=== PATIENT | female | born 1990 | race Caucasian/White ===

== ENCOUNTER 2019-10-11 12:00 | Outpatient (CLI) | payer OTHER | END 2019-10-11 12:01 | disposition home or self-care (01) | LOC: COV 12:00 | PROVIDERS: ATTEND Family Medicine | DX: R50.9 Fever, unspecified (principal); R53.83 Other fatigue; R09.81 Nasal congestion; Z20.828 Contact with and (suspected) exposure to other viral communicable diseases ==

== ENCOUNTER 2019-10-16 10:58 | Emergency (ER) | payer OTHER ==
[2019-10-16] MEDS ORDERED: KETOROLAC 30 MG/ML VIAL IVP STA (11:37)
--- NOTE | 2019-10-16 11:45 | ED Physician Documentation ---
History of Present Illness - Stated complaint Stated Complaint: NECK INJ - Chief complaint Chief Complaint: Trauma Hd/Nk - History obtained from History obtained from: Patient - History of Present Illness Timing: Today Pain level max: 8 Pain level now: 7 - Additonal information Additional information: Patient was at work today when she became stuck in a metal tank. She had flexion of her neck and back. She states she heard a crunching and has had increased pain since that time. No numbness or tingling. Has not taken anything for the pain. Is having pain in her thoracic spine, cervical spine and the back of her head. Denies any possibility of . Worse with movement, better with rest. Placed in a cervical collar at work. She works at [employer]. Review of Systems Ten Systems: 10 systems reviewed and negative Constitutional: denies: Fever, Chills Respiratory: denies: Cough GI: denies: Abdominal Pain, Nausea, Vomiting, Diarrhea : denies: Dysuria Skin: denies: Rash Musculoskeletal: reports: Neck pain, Back pain Neurologic: denies: Focal weakness, Numbness, Confused PD PAST MEDICAL HISTORY - Past Medical History Past Medical History: Yes Respiratory: Asthma - Past Surgical History Past Surgical History: No - Present Medications Home Medications: Ambulatory Orders Medication Instructions Recorded Confirmed Albuterol Sulfate [Albuterol 2 puffs IH Q4HR PRN #1 hfa.aer.ad 05/17/14 Sulfate Hfa] Albuterol [Ventolin Hfa] 2 puffs PO Q4H PRN 05/17/14 05/17/14 predniSONE [Deltasone] 40 mg PO DAILY 3 Days tablet 05/17/14 Cyclobenzaprine [Flexeril] 10 mg PO TID PRN #20 tablet 10/16/19 Meloxicam [Mobic] 15 mg PO DAILY PRN #20 tablet 10/16/19 - Allergies Allergies/Adverse Reactions: Allergies Allergy/AdvReac Type Severity Reaction Status Date / Time No Known Drug Allergies Allergy Verified 10/16/19 11:12 - Social History Does the pt smoke?: No Smoking Status: Never smoker Does the pt drink ETOH?: No Does the pt have substance abuse?: No - Immunizations Immunizations are current?: No - POLST Patient has POLST: No PD ED PE NORMAL - Vitals Vital signs reviewed: Yes - General General: Alert and oriented X 3, No acute distress, Well developed/nourished - HEENT HEENT: Atraumatic, PERRL, Moist mucous membranes, Pharynx benign - Neck Neck: Supple, no meningeal sign, Other (minimal midline TTP, no stepoff or deformity. NVI.) - Cardiac Cardiac: RRR, Strong equal pulses - Respiratory Respiratory: No respiratory distress, Clear bilaterally - Abdomen Abdomen: Soft, Non tender, Non distended - Back Back: Other (Mild midthoracic tenderness to palpation. No step-off or deformity.) - Derm Derm: Warm and dry - Extremities Extremities: No edema, No calf tenderness / cord - Neuro Neuro: Alert and oriented X 3, payroll lead 2-12 intact, No motor deficit, No sensory deficit, Normal speech - Psych Psych: Normal mood, Normal affect Results - Vitals Vitals: Vital Signs - 24 hr 10/16/19 10/16/19 10/16/19 11:07 11:19 11:42 Temperature 36.5 C Heart Rate 84 85 80 Respiratory 16 22 16 Rate Blood Pressure 120/69 111/70 107/73 O2 Saturation 99 100 99 10/16/19 13:00 Temperature Heart Rate 77 Respiratory 16 Rate Blood Pressure 118/66 O2 Saturation 98 Oxygen O2 Source Room air - Rads (name of study) CT c-spine Radiology: Prelim report reviewed, EMP read contemporaneously, See rad report head CT Radiology: Prelim report reviewed, EMP read contemporaneously, See rad report thoracic spine xray Radiology: Prelim report reviewed, EMP read contemporaneously, See rad report PD MEDICAL DECISION MAKING - ED course Complexity details: reviewed results, re-evaluated patient, considered differential, d/w patient ED course: 29-year-old female presents after an injury today at work in which she was compressed. No acute findings on head CT, cervical spine CT or thoracic spine x-ray. Appears muscular. No neurological deficits. L&I paperwork filled out. Patient counseled regarding signs and symptoms for which I believe and urgent re-evaluation would be necessary. Patient with good understanding of and agreement to plan and is comfortable going home at this time This document was made in part using voice recognition software. While efforts are made to proofread this document, sound alike and grammatical errors may occur. Departure - Departure Disposition: 01 Home, Self Care Clinical Impression: Neck muscle strain Qualifiers: Encounter type: initial encounter Qualified Code(s): S16.1XXA - Strain of muscle, fascia and tendon at neck level, initial encounter Condition: Good Instructions: ED Sprain Strain Neck Follow-Up: CELESTE BUSTOS ARNP [Primary Care Provider] - Within 1 week Prescriptions: Cyclobenzaprine [Flexeril] 10 mg PO TID PRN #20 tablet PRN Reason: Spasms Meloxicam [Mobic] 15 mg PO DAILY PRN #20 tablet PRN Reason: pain Comments: You do have a small lung nodule, 3 mm in your right upper lobe. This should be reimaged in 1 year. Otherwise there is no specific follow-up needed for this. Your CT scans and x-rays do not show any acute traumatic injuries today. Follow-up with your doctor for further care. Do not drive or operate heavy machinery while taking the Flexeril. Discharge Date/Time: 10/16/19 13:32
--- NOTE | 2019-10-16 12:31 | CT Report ---
PROCEDURE: HEAD WO INDICATIONS: head injury at work, steel plate TECHNIQUE: Noncontrast 4.5 mm thick angled axial sections acquired from the foramen magnum to the vertex. For r adiation dose reduction, the following was used: automated exposure control, adjustment of mA and/or kV according to patient size. COMPARISON: None. FINDINGS: Image quality: Excellent. CSF spaces: Basal cisterns are patent. No extra-axial fluid collections. Ventricles are normal in size and shape. Brain: No midline shift. No intracranial masses or hemorrhage. Alvarado-white matter interface is norm al. Skull and face: Calvarium and visualized facial bones are intact, without suspicious lesions. Sinuses: There is a mucous retention cyst or polyp in the right maxillary sinus. The mastoids are sukhdev ar. IMPRESSION: 1. No acute intracranial abnormalities. 2. A mucous retention cyst or polyp in the right maxillary sinus. Reviewed by: Brittany Saba MD on 10/16/2019 12:30 PM PDT Approved by: Brittany Saba MD on 10/16/2019 12:30 PM PDT Station ID: [id number]
--- NOTE | 2019-10-16 12:35 | CT Report ---
PROCEDURE: CERVICAL SPINE WO INDICATIONS: neck flexion injury at work TECHNIQUE: Noncontrast 3 mm thick sections acquired from the skull base to the T4 level. Sagittal and coronal r eformats were then constructed. For radiation dose reduction, the following was used: automated exp osure control, adjustment of mA and/or kV according to patient size. COMPARISON: None. FINDINGS: Image quality: Excellent. Bones: No fractures or dislocations. Visualized superior ribs are intact. Soft tissues: Prevertebral soft tissues are normal in thickness. No paravertebral hematomas. No ap ical pneumothoraces. Persistent 3 mm nodule in the right upper lobe (series 5 image 53/61). IMPRESSION: 1. No acute traumatic injury in cervical spine. 2. A 3 mm nodule in the right upper lobe. Please see enclosed follow-up recommendation. Fleischner Society criteria for SOLID lung nodule followup. Nodule size (mm) Low-risk patient High-risk patient ?4 No follow-up needed Follow-up at 12 mo; if no change, no further follow-up >4-[address] at 12 mo; if no change, no further follow-up needed. Initial follow-up CT at 6-12 mo, then 18-24 mo if no change. >6-8 Initial follow-up CT at 6-12 mo, then 18-24 mo if no change. Initial follow-up CT at 3-6 mo, then 9-12 mo and 24 mo if no change. >8 Follow-[address] at 3, 9, 24 mo. Or PET and/or biopsy. Same as for low-risk pts. Reviewed by: Brittany Saba MD on 10/16/2019 12:34 PM PDT Approved by: Brittany Saba MD on 10/16/2019 12:34 PM PDT Station ID: [id number]
--- NOTE | 2019-10-16 13:15 | XRAY Report ---
PROCEDURE: Thoracic Spine 2 View INDICATIONS: back flexion injury at work TECHNIQUE: 3 views of the thoracic spine were acquired. COMPARISON: None. FINDINGS: Bones: No fractures or dislocations. No suspicious bony lesions. 12 pairs of ribs are noted, and a ppear intact where visualized. The 12th pair ribs are rudimentary. Soft tissues: No paravertebral stripe thickening. IMPRESSION: No fracture in thoracic spine. Reviewed by: Brittany Saba MD on 10/16/2019 1:13 PM PDT Approved by: Brittany Saba MD on 10/16/2019 1:13 PM PDT Station ID: [id number]
[2019-10-16 13:32] VITALS: BP 118/66
== END 2019-10-16 13:32 | disposition home or self-care (01) ==
LOC: ED 10:58
DX: S16.1XXA Strain of muscle, fascia and tendon at neck level, initial encounter (principal); M54.6 Pain in thoracic spine; R51 Headache; W23.0XXA Caught, crushed, jammed, or pinched between moving objects, initial encounter; Y92.814 Boat as the place of occurrence of the external cause; Y99.0 Civilian activity done for income or pay; R91.1 Solitary pulmonary nodule
CPT/HCPCS: 70450; 72070; 72125; 96374; 99284